=== PATIENT | female | born 1990 | race Caucasian/White ===

== ENCOUNTER 2020-05-27 15:13 | Emergency (ER) | payer OTHER ==
[2020-05-27 15:24] VITALS: BP 117/73; PULSE 90; TEMP 97.7; BMI 30.7
[2020-05-27 15:41] LABS: PH,URINE 7.5 (5.0-8.0); URINE APPEARANCE CLOUDY; URINE BILIRUBIN NEGATIVE (NEGATIVE); URINE COLOR YELLOW; URINE GLUCOSE (UA) NEGATIVE (NEGATIVE); URINE KETONE NEGATIVE (NEGATIVE); URINE LEUK ESTERASE NEGATIVE (NEGATIVE); URINE NITRITE NEGATIVE (NEGATIVE); URINE PROTEIN NEGATIVE (NEGATIVE)
[2020-05-27 15:44] LABS: HCG,QUALITATIVE URINE Negative
[2020-05-27] MEDS ORDERED: SODIUM CHLORIDE 1,000 ML IV STA ×2 (15:54→16:55)
[2020-05-27] MEDS ORDERED: METOCLOPRAMIDE HCL INJECTION 10 MG/2 ML VIAL IVPB ONE (15:54)
[2020-05-27] MEDS ORDERED: KETOROLAC TROMETHAMINE 30 MG/1 ML VIAL IVPUSH ONE (15:55)
[2020-05-27] MEDS ORDERED: KETOROLAC TROMETHAMINE 30 MG/1 ML VIAL ONE (16:05)
[2020-05-27] MEDS ORDERED: METOCLOPRAMIDE HCL INJECTION 10 MG/2 ML VIAL ONE (16:05)
--- NOTE | 2020-05-27 16:07 | PDOC ---
History of Present Illness - General Chief Complaint: Headache Stated Complaint: HEADACHE Time Seen by Provider: 05/27/20 15:46 History Source: Patient Exam Limitations: Clinical Condition - History of Present Illness Initial Comments: 05/27/20 16:02 Patient with past medical history of headaches present with complaint of worsening 10 out of 10 throbbing frontal headaches which has been persistent for 5 days now and not improving with Aleve. Patient report nausea but denies vomiting. Patient reported photophobia. Patient reported has been having intermittent headache in the past but never this severe. Patient takes Aleve sporadically for headache which improve her headache but is never been on medication for migraines. Denies blurry vision or change in vision, chest pain, palpitation, shortness of breath. Denies head trauma. Denies any other symptoms. LMP 2 days ago Timing/Duration: reports: other (5 days) Past History - Medical History Allergies/Adverse Reactions: Allergies Allergy/AdvReac Type Severity Reaction Status Date / Time acetaminophen [From Tylenol] Allergy Verified 05/27/20 15:21 Home Medications: Ambulatory Orders Sumatriptan Succinate [Imitrex] 25 mg PO Q8H PRN #20 tablet 05/27/20 COPD: No - Reproductive History Is Patient Now?: No - Psycho-Social/Smoking History Smoking History: Never smoked - Substance Abuse Hx (Audit-C & DAST Scrn) How often the patient has a drink containing alcohol: Monthly or less Score: In Men: 4 or > Positive; In Women: 3 or > Positive: 1 Screen Result (Pos requires Nsg. Audit-10AR): Negative In the last yr the pt used illegal drug/Rx for NonMed reason: No Score: Yes response is considered Positive: 0 Screen Result (Positive result requires Nsg. DAST-10): Negative Review of Systems - Review of Systems Able to Perform ROS?: Yes Is the patient limited [place] proficient: No Constitutional: No: Chills, Fever, Malaise HEENTM: Yes: Symptoms Reported, See HPI, Other (photophobia). No: Eye Pain, Blurred Vision, Tearing, Recent change in vision, Double Vision, Cataracts, Ear Pain, Ocular Prothesis, Ear Discharge, Nose Pain, Nose Congestion, Tinnitus, N ose Bleeding, Hearing Loss, Throat Pain, Throat Swelling, Mouth Pain, Dental Problems, Difficulty Swallowing, Mouth Swelling Respiratory: No: Symptoms reported, See HPI, Cough, Orthopnea, Shortness of Breath, SOB with Exertion, SOB at Rest, Stridor, Wheezing, Productive cough, Hemoptysis, Other Cardiac (ROS): No: Symptoms Reported, See HPI, Chest Pain, Edema, Irregular Heart Rate, Lightheadedness, Palpitations, Syncope, Chest Tightness, Other ABD/GI: No: Symptoms Reported, Nausea, Vomiting Musculoskeletal: No: Symptoms Reported Integumentary: No: Symptoms Reported Neurological: Yes: Symptoms reported, See HPI, Headache. No: Numbness, Weaknes s, Dizziness All Other Systems: Reviewed and Negative *Physical Exam - Vital Signs Last Vital Signs Temp Pulse Resp BP Pulse Ox 97.7 F 90 18 117/73 99 05/27/20 15:22 05/27/20 15:22 05/27/20 15:22 05/27/20 15:22 05/27/20 15:22 - Physical Exam 05/27/20 16:10 GENERAL: Well developed, well nourished. Awake and alert. No acute distress. HEENT: Normocephalic, atraumatic. PERRLA, EOMI. No conjunctival pallor. Sclera are non- icteric. Moist mucous membranes. Oropharynx is clear. NECK: Supple. Full ROM. No JVD. Carotid pulses 2+ and symmetric, without bruits. No thyromegaly. No lymphadenopathy. CARDIOVASCULAR: Regular rate and rhythm. No murmurs, rubs, or gallops. Distal pulses are 2+ and symmetric. PULMONARY: No evidence of respiratory distress. Lungs clear to auscultation bilaterally. No wheezing, rales or rhonchi. ABDOMINAL: Soft. Non-tender. Non-distended. No rebound or guarding. No organomegaly. Normoactive bowel sounds. MUSCULOSKELETAL Normal range of motion at all joints. No bony deformities or tenderness. No CVA tenderness. EXTREMITIES: No cyanosis. No clubbing. No edema. No calf tenderness. SKIN: Warm and dry. Normal capillary refill. No rashes. No jaundice. NEUROLOGICAL: Alert, awake, appropriate. Cranial nerves 2-12 intact. No deficits to light touch in face, upper extremities and lower extremities. No motor deficits in the in face, upper extremities and lower extremities. Normal speech. Gait is normal without ataxia. PSYCHIATRIC: Cooperative. Good eye contact. Appropriate mood and affect. General Appearance: Yes: Nourished, Appropriately Dressed. No: Apparent Distress ED Treatment Course - LABORATORY CBC & Chemistry Diagram: 05/27/20 16:00 05/27/20 16:00 - ADDITIONAL ORDERS Additional order review: Laboratory Results 05/27/20 15:27 Urine Color Yellow Urine Appearance Cloudy Urine pH 7.5 Ur Specific [place] 1.015 Urine Protein Negative Urine Glucose (UA) Negative Urine Ketones Negative Urine Blood Negative Urine Nitrite Negative Urine Bilirubin Negative Urine Urobilinogen 1.0 Ur Leukocyte Esterase Negative Urine HCG, Qual Negative Medical Decision Making - Medical Decision Making 05/27/20 16:05 Patient with past medical history of headaches present with complaint of worsening 10 out of 10 throbbing frontal headaches which has been persistent for 5 days now and not improving with Aleve. Patient report nausea but denies vomiting. Patient reported photophobia. Patient reported has been having intermittent headache in the past but never this severe. Patient takes Aleve sporadically for headache which improve her headache but is never been on medication for migraines. Denies blurry vision or change in vision, chest pain, palpitation, shortness of breath. Denies head trauma. Denies any other symptoms. LMP 2 days ago Clinical exam unremarkable with normal neuro exam. Patient in moderate apparent distress with headache. Given patient complaint is the worst headache, will do head CT to rule out acute intracranial abnormality. CBC and chemistry lab ordered and test ordered. IV Toradol 30 mg, Reglan 10 mg IV and normal saline ordered for migraine headache after head CT. Reassess after lab and imaging 05/27/20 17:38 CBC and chemistry lab unremarkable. Head CT shows no acute intracranial abnormality. Serum test negative. Patient reported complete improvement of headache with Reglan, Toradol and normal saline and requesting to be discharged. Patient clinically stable for discharge on Imitrex as needed for migraine with strict follow-up instructions and to follow-up with neurology Discharge - Discharge Information Problems reviewed: Yes Clinical Impression/Diagnosis: Migraine headache with aura Qualifiers: Status migrainosus presence: without status migrainosus Intractability: not intractable Qualified Code(s): G43.109 - Migraine with aura, not intractable, without status migrainosus Condition: Improved Disposition: HOME - Admission No - Additional Discharge Information Prescriptions: Sumatriptan Succinate [Imitrex] 25 mg PO Q8H PRN #20 tablet PRN Reason: headache - Follow up/Referral Referrals: Hubert Jama MD [Staff Physician] - Charles Pardo MD [Staff Physician] - - Patient Discharge Instructions Patient Printed Discharge Instructions: DI for Migraine Additional Instructions: Your blood work was normal. Your head CAT scan is normal as well. Your symptoms likely from migraine. Take prescribed medication as needed for migraine headaches. Follow-up referred neurologist and your primary care - Post Discharge Activity
[2020-05-27 16:40] LABS: HEMATOCRIT 41.7 % (32.4-45.2); HEMOGLOBIN 13.7 GM/dL (10.7-15.3); LYMPH % 36.9 % (8-40); MCH 27.8 pg (25.7-33.7); MCHC 32.8 g/dl (32.0-36.0); MEAN CELL VOLUME 84.6 fl (80-96); MEAN PLT VOLUME 8.1 fl (7.5-11.1); MONO % 18.1 % (3.8-10.2); PLATELET COUNT 307 K/MM3 (134-434); RBC 4.93 M/mm3 (3.60-5.2); RDW 14.1 % (11.6-15.6); WHITE BLOOD COUNT 5.9 K/mm3 (4.0-10.0)
[2020-05-27 16:58] LABS: ALBUMIN 3.8 g/dl (3.4-5.0); BILIRUBIN,TOTAL 0.7 mg/dL (0.2-1); BLOOD UREA NITROGEN 10.6 mg/dL (7-18); CALCIUM 9.1 mg/dL (8.5-10.1); CREATININE 0.7 mg/dL (0.55-1.3); POTASSIUM 4.3 mmol/L (3.5-5.1); TOT PROT 7.8 g/dl (6.4-8.2)
== END 2020-05-27 17:54 | disposition home or self-care (01) ==
LOC: JER 15:13
PROC: 3E0333Z Introduction of Anti-inflammatory into Peripheral Vein, Percutaneous Approach (ICD-10-PCS; principal; 2020-05-27)
PROC: 3E033GC Introduction of Other Therapeutic Substance into Peripheral Vein, Percutaneous Approach (ICD-10-PCS; 2020-05-27)
PROC: 3E0337Z Introduction of Electrolytic and Water Balance Substance into Peripheral Vein, Percutaneous Approach (ICD-10-PCS; 2020-05-27)
DX: G43.109 Migraine with aura, not intractable, without status migrainosus (principal)
CPT/HCPCS: 36415; 70450-TC; 80053; 81003; 84703; 85025; 99284-25

== ENCOUNTER 2020-05-28 20:39 | Emergency (ER) | payer OTHER ==
[2020-05-28 20:45] VITALS: BP 135/84; PULSE 99; TEMP 99.2; BMI 30.7
[2020-05-28] MEDS ORDERED: SODIUM CHLORIDE 0.9% 500 ML INFUS.BAG IV ONE (22:06)
[2020-05-28] MEDS ORDERED: METOCLOPRAMIDE HCL INJECTION 10 MG/2 ML VIAL IVPUSH ONE (22:06)
[2020-05-28] MEDS ORDERED: KETOROLAC TROMETHAMINE 30 MG/1 ML VIAL IVPUSH ONE (22:06)
[2020-05-28] MEDS ORDERED: METOCLOPRAMIDE HCL INJECTION 10 MG/2 ML VIAL ONE (22:11)
[2020-05-28] MEDS ORDERED: KETOROLAC TROMETHAMINE 30 MG/1 ML VIAL ONE (22:11)
--- NOTE | 2020-05-28 22:13 | PDOC ---
History of Present Illness - General Chief Complaint: Migraine Headache Stated Complaint: HEADACHE,VOMITING/NAUSEA/WEAKNESS History Source: Patient Exam Limitations: No Limitations - History of Present Illness Initial Comments: 05/28/20 22:08 Patient is a 30-year-old female with history of migraines here with migraine headache x6 to 7 days. She was seen in the emergency room yesterday, CT scan of head done was negative and was treated, given a prescription for Imitrex. States that the medication helps during the morning however at night the headache returns. She has had nausea and 2 episodes of vomiting today last episode was 1 hour ago. LOPEZ now is frontal 9/10 sharp, associated with photophobia. Denies fever, chills, neck stiffness. PMHX: As above PSOCHX: neg etoh ALL: Tylenol GENERAL/CONSTITUTIONAL: [No fever or chills. No weakness. No weight change.] HEAD, EYES, EARS, NOSE AND THROAT: [No change in vision. No ear pain or discharge. No sore throat.] CARDIOVASCULAR: [No chest pain or shortness of breath.] RESPIRATORY: [No cough, wheezing, or hemoptysis.] GASTROINTESTINAL: [(+) nausea, vomiting, (-) diarrhea or constipation. No rectal bleeding.] GENITOURINARY: [No dysuria, frequency, or change in urination.] MUSCULOSKELETAL: [No joint or muscle swelling or pain. No neck or back pain.] SKIN AND BREASTS: [No rash or easy bruising.] NEUROLOGIC: [(+) headache, vertigo, (-) loss of consciousness, or loss of sensation.] PSYCHIATRIC: [No depression or anxiety.] ENDOCRINE: [No increased thirst. No abnormal weight change.] HEMATOLOGIC/LYMPHATIC: [No anemia, easy bleeding, or history of blood clots.] ALLERGIC/IMMUNOLOGIC: [No hives or skin allergy. No latex allergy.] GENERAL: [The patient is awake, alert, and fully oriented, in acute distress.] HEAD: [Normal with no signs of trauma.] EYES: [Pupils equal, round and reactive to light, extraocular movements intact, sclera anicteric, conjunctiva clear.] ENT: [Ears normal, nares patent, oropharynx clear without exudates. Moist mucous membranes.] NECK: [Normal range of motion, supple without lymphadenopathy, JVD, or masses.] LUNGS: [Breath sounds equal, clear to auscultation bilaterally. No wheezes, and no crackles.] HEART: [Regular rate and rhythm, normal S1 and S2 without murmur, rub.] ABDOMEN: [Soft, nontender, normoactive bowel sounds. No guarding, no rebound. No masses.] EXTREMITIES: [Normal range of motion, no edema. No clubbing or cyanosis. No cords, erythema, or tenderness.] NEUROLOGICAL: [Cranial nerves II through XII grossly intact. Normal speech, normal gait, (+) photophobia.] PSYCH: [Normal mood, normal affect.] SKIN: [Warm, Dry, normal turgor, no rashes or lesions noted.] Past History - Medical History Allergies/Adverse Reactions: Allergies Allergy/AdvReac Type Severity Reaction Status Date / Time acetaminophen [From Tylenol] Allergy Verified 05/27/20 15:21 Home Medications: Ambulatory Orders Sumatriptan Succinate [Imitrex] 25 mg PO Q8H PRN #20 tablet 05/27/20 COPD: No Other medical history: migranes - Reproductive History Is Patient Now?: No - Psycho-Social/Smoking History Smoking History: Never smoked - Substance Abuse Hx (Audit-C & DAST Scrn) How often the patient has a drink containing alcohol: Never Score: In Men: 4 or > Positive; In Women: 3 or > Positive: 0 Screen Result (Pos requires Nsg. Audit-10AR): Negative In the last yr the pt used illegal drug/Rx for NonMed reason: No Score: Yes response is considered Positive: 0 Screen Result (Positive result requires Nsg. DAST-10): Negative *Physical Exam - Vital Signs Last Vital Signs Temp Pulse Resp BP Pulse Ox 99.2 F 99 H 19 135/84 100 05/28/20 20:42 05/28/20 20:42 05/28/20 20:42 05/28/20 20:42 05/28/20 20:42 Medical Decision Making - Medical Decision Making 05/28/20 22:08 Patient is a 30-year-old female with history of migraines here with migraine headache x6 to 7 days. She was seen in the emergency room yesterday, CT scan of head done was negative and was treated, given a prescription for Imitrex. States that the medication helps during the morning however at night the headache returns. She has had nausea and 2 episodes of vomiting today last episode was 1 hour ago. LOPEZ now is frontal 9/10 sharp. Denies fever, chills, neck stiffness. Migraine headache will give symptomatic treatment. Toradol, Reglan, Benadryl, IV fluids Reassess. 05/28/20 23:51 Patient feels improved, her pain is resolved. Will discharge patient. I discussed the physical exam findings, ancillary test results and final diagnoses with the patient. I answered all of the patient's questions. The patient was satisfied with the care received and felt comfortable with the disc harge plan and treatment plan. The Patient agrees to follow up with the primary care physician within 24-72 hours. Discharge - Discharge Information Problems reviewed: Yes Clinical Impression/Diagnosis: Migraine headache Qualifiers: Migraine type: unspecified Status migrainosus presence: without status migrainosus Intractability: not intractable Qualified Code(s): G43.909 - Migraine, unspecified, not intractable, without status migrainosus Condition: Stable Disposition: HOME - Follow up/Referral - Patient Discharge Instructions Patient Printed Discharge Instructions: DI for Migraine Additional Instructions: Your Discharge Instructions: You must call primary care physician within 24 hours to arrange follow-up. Return to the Emergency Department with any new, persistent or worsening symptoms, for fever, chills, SOB, dizziness or any other concerning changes that may occur. You must call to make the appointment with the neurologist as soon as possible. - Post Discharge Activity
== END 2020-05-29 00:45 | disposition home or self-care (01) ==
LOC: JER 20:39
PROC: 3E0333Z Introduction of Anti-inflammatory into Peripheral Vein, Percutaneous Approach (ICD-10-PCS; principal; 2020-05-28)
PROC: 3E033GC Introduction of Other Therapeutic Substance into Peripheral Vein, Percutaneous Approach (ICD-10-PCS; 2020-05-28)
DX: G43.909 Migraine, unspecified, not intractable, without status migrainosus (principal)
CPT/HCPCS: 99283-25

== ENCOUNTER 2021-08-14 16:19 | Emergency (ER) | payer OTHER ==
[2021-08-14 16:42] VITALS: BP 117/74; PULSE 86; TEMP 98.3; BMI 41.3
[2021-08-14 19:13] LABS: EPI CELLS >36 /uL (0-25.1); HYALINE CASTS 1 /uL (0-3.1); URINE APPEARANCE CLOUDY; URINE BACTERIA 2227 /uL (0-1359); URINE BILIRUBIN NEGATIVE (NEGATIVE); URINE COLOR YELLOW; URINE GLUCOSE (UA) NEGATIVE (NEGATIVE); URINE KETONE NEGATIVE (NEGATIVE); URINE LEUK ESTERASE NEGATIVE (NEGATIVE); URINE NITRITE NEGATIVE (NEGATIVE); URINE PROTEIN NEGATIVE (NEGATIVE); URINE RBC 14 /uL (0-23.9); URINE WBC 38 /uL (0-25.8)
[2021-08-14 19:29] LABS: HCG,QUALITATIVE URINE Negative
[2021-08-14] MEDS ORDERED: MECLIZINE HCL 25 MG TABLET (FP) PO ONE (19:37)
[2021-08-14] MEDS ORDERED: MECLIZINE HCL 25 MG TABLET (FP) ONE (20:41)
== END 2021-08-14 21:54 | disposition home or self-care (01) ==
LOC: JER 16:19
DX: R42 Dizziness and giddiness (principal)
CPT/HCPCS: 70450-TC; 81003; 84703; 93005; 93010; 99284-25